=== PATIENT | female | born 1995 ===

== ENCOUNTER 2022-01-12 18:11 | Emergency (ER) | payer SELFPAY ==
[2022-01-12 18:43] VITALS: BP 128/82
== END 2022-01-12 23:20 | disposition left against medical advice (07) ==
LOC: EDBD → ED 18:11
DX: S61.419A Laceration without foreign body of unspecified hand, initial encounter (principal); Z53.21 Procedure and treatment not carried out due to patient leaving prior to being seen by health care provider; X58.XXXA Exposure to other specified factors, initial encounter; Y93.89 Activity, other specified; Y92.89 Other specified places as the place of occurrence of the external cause; Y99.8 Other external cause status